=== PATIENT | female | born 2000 | race Caucasian/White ===

== ENCOUNTER 2024-10-11 11:36 | Emergency (ER) | payer OTHER ==
[~2024-10-11] VITALS: Ht 142.2 cm; Wt 80.3 kg
[2024-10-11] MEDS: FLUORESCEIN OPHTH 1 MG STRIP OS ONE (12:05)
[2024-10-11] MEDS: PROPARACAINE 0.5% OPHTH SOL 15ML OS ONE (12:05)
[2024-10-11] MEDS ORDERED: PRED1SUS30 OS (13:02)
[2024-10-11 13:13] VITALS: BP 143/65; TEMP 98.1; O2SAT 96
== END 2024-10-11 13:18 | disposition home or self-care (01) ==
LOC: M ED 11:36
DX: H44.132 Sympathetic uveitis, left eye (principal); K50.90 Crohn's disease, unspecified, without complications; F32.A Depression, unspecified; M19.90 Unspecified osteoarthritis, unspecified site; Z79.52 Long term (current) use of systemic steroids; Z88.0 Allergy status to penicillin

== ENCOUNTER 2025-02-02 11:32 | Emergency (ER) | payer OTHER ==
[~2025-02-02] VITALS: Ht 142.2 cm; Wt 74.4 kg
[~2025-02-02 11:32] MED LIST: PRED1SUS30 OS
[2025-02-02 11:37] VITALS: TEMP 98.4
[2025-02-02] MEDS ORDERED: CYCL100C5 (11:44)
[2025-02-02] MEDS ORDERED: BUPR150T12 (11:44)
[2025-02-02 13:54] LABS: BASO # 0.1 10^3/uL (0.0-0.2); BASO % 0.6 % (0.0-1.0); EOS # 0.3 10^3/uL (0.0-0.5); EOS % 2.5 % (0.0-3.0); LYMPH # 1.9 10^3/uL (1.5-5.0); LYMPH % 17.9 % (24.0-44.0); MONO # 0.7 10^3/uL (0.0-0.8); MONO % 6.6 % (2.0-8.0); NEUTROPHILS # 7.8 10^3/uL (1.5-8.5); NEUTROPHILS % 72.2 % (36.0-66.0); PLATELET COUNT, AUTOMATED 245 10^3/uL (150-450)
[2025-02-02] MEDS: KETOROLAC 30 MG/ML 1 ML VIAL IV ONE (14:08)
[2025-02-02] MEDS ORDERED: ISOVUE-370 76% 100 ML VIAL As Ordered ONE (14:11)
[2025-02-02 14:25] LABS: RHEUMATOID FACTOR QUANT 5.3 IU/ML (<14)
[2025-02-02 14:26] LABS: ALT/SGPT 19 U/L (7.0-40); AST/SGOT 25 U/L (<34)
[2025-02-02 14:27] LABS: INR 1.02
[2025-02-02 14:36] LABS: HCG, SERUM QUALITATIVE NEGATIVE (NEGATIVE)
[2025-02-02 17:48] VITALS: O2SAT 97
[2025-02-02 17:55] VITALS: BP 114/67
== END 2025-02-02 17:58 | disposition home or self-care (01) ==
LOC: M ED 11:32
DX: M06.9 Rheumatoid arthritis, unspecified (principal); R10.9 Unspecified abdominal pain; K50.90 Crohn's disease, unspecified, without complications; F32.A Depression, unspecified; Z88.0 Allergy status to penicillin; Z90.5 Acquired absence of kidney; W19.XXXA Unspecified fall, initial encounter
CPT/HCPCS: 73110; 73564; 74177; 80047; 80076; 83690; 84145; 84550; 84703; 85025; 85610; 85652; 85730; 86431; 86850; 86900; 86901; 96374; 99284; J1885; Q9967